=== PATIENT | male | born 1960 | race Caucasian/White ===

== ENCOUNTER → 2019-04-18 09:30 | Outpatient (BNVA) | payer MEDICAID, SELFPAY | PROVIDERS: Family Provider Nurse Practitioner Family; PCP Nurse Practitioner Family; Visit Provider Registered Nurse | DX: T81.41XA Infection following a procedure, superficial incisional surgical site, initial encounter (principal); I82.409 Acute embolism and thrombosis of unspecified deep veins of unspecified lower extremity; I82.403 Acute embolism and thrombosis of unspecified deep veins of lower extremity, bilateral | CPT/HCPCS: 85025 ==

== ENCOUNTER → 2019-09-24 16:12 | Outpatient (BNVA) | payer MEDICAID, SELFPAY | PROVIDERS: Family Provider Nurse Practitioner Family; PCP Nurse Practitioner Family; Visit Provider Registered Nurse | DX: E78.5 Hyperlipidemia, unspecified (principal); I10 Essential (primary) hypertension; F51.01 Primary insomnia; F10.982 Alcohol use, unspecified with alcohol-induced sleep disorder; I48.91 Unspecified atrial fibrillation; G60.9 Hereditary and idiopathic neuropathy, unspecified | CPT/HCPCS: 80053; 80061 ==

== ENCOUNTER → 2020-04-16 11:37 | Outpatient (BNVA) | payer MEDICAID, SELFPAY | PROVIDERS: Family Provider Nurse Practitioner Family; PCP Nurse Practitioner Family; Visit Provider Registered Nurse | DX: I10 Essential (primary) hypertension (principal); G60.9 Hereditary and idiopathic neuropathy, unspecified; N52.9 Male erectile dysfunction, unspecified | CPT/HCPCS: 80053; 80061; 85025 ==

== ENCOUNTER → 2020-12-24 00:01 | Outpatient (BNVA) | payer MEDICAID, SELFPAY | PROVIDERS: Family Provider Nurse Practitioner Family; PCP Registered Nurse; Visit Provider Registered Nurse | DX: G60.9 Hereditary and idiopathic neuropathy, unspecified (principal); J44.9 Chronic obstructive pulmonary disease, unspecified; F51.01 Primary insomnia; I10 Essential (primary) hypertension; F10.982 Alcohol use, unspecified with alcohol-induced sleep disorder | CPT/HCPCS: 80053 ==

== ENCOUNTER → 2021-05-28 09:37 | Outpatient (BNVA) | payer MEDICAID, SELFPAY | PROVIDERS: Family Provider Nurse Practitioner Family; PCP Registered Nurse; Visit Provider Internal Medicine Cardiovascular Disease | DX: I73.9 Peripheral vascular disease, unspecified (principal); Z72.0 Tobacco use; I48.91 Unspecified atrial fibrillation; I10 Essential (primary) hypertension | CPT/HCPCS: 99214; 99215 ==

== ENCOUNTER → 2021-10-06 08:36 | Outpatient (BNVA) | payer MEDICAID, SELFPAY | PROVIDERS: Family Provider Nurse Practitioner Family; PCP Registered Nurse; Visit Provider Registered Nurse | DX: I10 Essential (primary) hypertension (principal); J44.9 Chronic obstructive pulmonary disease, unspecified; E78.5 Hyperlipidemia, unspecified; N52.9 Male erectile dysfunction, unspecified; F51.01 Primary insomnia; F10.982 Alcohol use, unspecified with alcohol-induced sleep disorder; J30.2 Other seasonal allergic rhinitis | CPT/HCPCS: 80053; 80061; 85025 ==

== ENCOUNTER → 2022-07-21 10:25 | Outpatient (BNVA) | payer MEDICAID, SELFPAY | PROVIDERS: Family Provider Nurse Practitioner Family; PCP Registered Nurse; Visit Provider Specialist | DX: I48.0 Paroxysmal atrial fibrillation (principal); Z72.0 Tobacco use; I10 Essential (primary) hypertension; N52.9 Male erectile dysfunction, unspecified; I73.9 Peripheral vascular disease, unspecified; E78.5 Hyperlipidemia, unspecified; Z91.148 Patient's other noncompliance with medication regimen for other reason | CPT/HCPCS: 93246; 99214 ==

== ENCOUNTER → 2023-02-10 10:16 | Outpatient (BNVA) | payer MEDICAID, SELFPAY | PROVIDERS: Family Provider Nurse Practitioner Family; PCP Registered Nurse; Visit Provider Internal Medicine Cardiovascular Disease | DX: R06.02 Shortness of breath (principal); I48.0 Paroxysmal atrial fibrillation; I10 Essential (primary) hypertension; Z72.0 Tobacco use; R53.83 Other fatigue; I73.9 Peripheral vascular disease, unspecified; E78.5 Hyperlipidemia, unspecified; Z79.01 Long term (current) use of anticoagulants | CPT/HCPCS: 99214 ==

== ENCOUNTER 2023-06-10 08:32 | Outpatient (CLI) | payer MEDICAID, SELFPAY ==
--- NOTE | 2023-06-10 09:45 | USCV_ITS ---
Hi Martin Age: 62 Gender: M : 1960 Exam Date: 06/10/2023 08:39 Ordering Phys: Radha James MD ([email or web address]) Technologist: Exam [place] [facility] [place]: RIGHT LEFT Brachial 159.00 mmHg Brachial 150.00 mmHg Pressure (mmHg) Waveform Pressure (mmHg) Waveform 116.00 EMR ANALYST 136.00 129.00 DPA 144.00 0.81 Ankle/Brachial Index 0.91 FINDINGS Resting MARIAN 0.81 on the right side and 0.9 on 0.91 on the left side Post exercise MARIAN of 0.44 on the right and 0.87 on the left CONCLUSIONS 1. Abnormal post exercise MARIAN on the right side suggesting severe peripheral artery disease 2. Slightly diminished postexercise MARIAN on the left side suggesting mild peripheral arterial disease Dr Robin Diallo MD [facility] (Electronically Signed) Final Date: 10 June 2023 18:53 S
== END 2023-06-10 08:33 | disposition home or self-care (01) ==
LOC: RAD 08:32
PROVIDERS: PCP Registered Nurse; Visit Provider Internal Medicine Cardiovascular Disease
DX: I73.9 Peripheral vascular disease, unspecified (principal); R93.6 Abnormal findings on diagnostic imaging of limbs
CPT/HCPCS: 93922

== ENCOUNTER → 2023-12-16 07:23 | Outpatient (BNVA) | payer MEDICAID, SELFPAY | PROVIDERS: PCP Registered Nurse; Visit Provider Nurse Practitioner Family | DX: I48.0 Paroxysmal atrial fibrillation (principal); I10 Essential (primary) hypertension; F17.210 Nicotine dependence, cigarettes, uncomplicated | CPT/HCPCS: 99214 ==

== ENCOUNTER → 2024-04-10 09:17 | Outpatient (BNVA) | payer MEDICAID, SELFPAY | PROVIDERS: PCP Registered Nurse; Visit Provider Registered Nurse | DX: I10 Essential (primary) hypertension (principal) | CPT/HCPCS: 80053; 80061; 85025 ==

== ENCOUNTER 2024-05-06 14:29 | Emergency (ER) | payer MEDICAID, SELFPAY ==
[2024-05-06] VITALS (13 sets, daily range): BP systolic 148–203; BP diastolic 92–155; PULSE 74–108; RESP 17–30; TEMP 36.8; O2SAT 94–99; BMI 32.6
--- NOTE | 2024-05-06 15:10 | CTR_ITS ---
PROCEDURE INFORMATION: Exam: CT Head Without Contrast Exam date and time: 05/06/2024 3:16 PM Age: 63 years old Clinical indication: Stroke-like symptoms; Lt lower extremity weakness; Additional info: Sroke symptoms TECHNIQUE: Imaging protocol: Computed tomography of the head without contrast. Radiation optimization: All CT scans at this facility use at least one of these dose optimization techniques: automated exposure control; mA and/or kV adjustment per patient size (includes targeted exams where dose is matched to clinical indication); or iterative reconstruction. Other technique: STROKE PROTOCOL was implemented. COMPARISON: No relevant prior studies available. RADIATION DOSE METRICS: Total DLP (mGy-cm): 1139.49 FINDINGS: Brain: Mild nonspecific white matter low attenuation which may be related to microvascular ischemic changes. No acute confluent lobar ischemic infarct. No acute intracranial hemorrhage. Cerebral ventricles: The ventricles and sulci are normal in size and shape for the patient's stated age. Paranasal sinuses: No fluid levels. Mastoid air cells: Visualized mastoid air cells are well aerated. Bones: No acute calvarial fracture. Soft tissues: Visualized soft tissues are unremarkable. CT/CT head thrombolytic 89775 IMPRESSION: No acute intracranial abnormality. If symptoms persist, consider further evaluation with MRI, if there are no contraindications to obtaining a MRI scan. ASSESSMENT: ASPECTS ([place] Stroke Program Early CT Score) is 10.
--- NOTE | 2024-05-06 15:11 | ECG_ITS ---
[facility] Pat Name: Hi Martin Department: Room: Gender: Male Fixed Capital Clerk: : 1960 Requested By: Daryl Wyatt Order Number: [id number] Reading MD: LAVONNE FERNANDEZ Measurements Intervals [place] Rate: 88 P: 0 TN: 0 QRS: -30 QRSD: 99 T: 92 QT: 362 QTc: 439 Interpretive Statements ATRIAL FIBRILLATION BORDERLINE LEFT AXIS DEVIATION [QRS AXIS < -20] NONSPECIFIC ST & T-WAVE ABNORMALITY INTERPRETATION BASED ON A DEFAULT AGE OF 40 YEARS Compared to ECG 07/08/2016 13:58:59 T-wave abnormality now present ST (T wave) deviation no longer present Electronically Signed On 05-06-2024 20:46:35 ARMHOLE SEWER by LAVONNE FERNANDEZ [id number]
--- NOTE | 2024-05-06 15:27 | PC.NURSE ---
PATIENT NEUROCHECKS AND SHORT STROKE SCALE COMPLETED AT TIME OF PATIENT ARRIVAL BY EMS. PATIENT NEUROCHECKS AND STROKE SCALE NEGATIVE FOR FINDINGS. PATIENT PLACED IN WR.
[2024-05-06 16:30] LABS: Basophils # 0.1 10^3/uL (0.0-0.1); Basophils % 0.7 %; Eosinophils # 0.5 10^3/uL (0.0-0.8); Eosinophils % 4.3 %; Hematocrit 43.7 % (37-53); Lymphocytes # 1.5 10^3/uL (0.8-4.8); Lymphocytes % 12.9 %; Mean Corpuscular HGB Conc 33.9 g/dL (30-55); Mean Corpuscular Hemoglobin 32.6 pg (27-33); Mean Corpuscular Volume 96.3 fl (82-101); Mean Platelet Volume 10.2 fL (7.4-10.4); Monocytes # 0.9 10^3/uL (0.2-0.9); Monocytes % 8.1 %; Neutrophils # 8.48 10^3/uL (1.8-7.7); Neutrophils % 73.7 %; Nucleated Red Blood Cells % 0 %; Platelet Count 174 10^3/cmm (157-399); Red Blood Count 4.54 10^6/uL (3.85-5.65); Red Cell Distribution Width 13.9 % (12.1-15.1); White Blood Count 11.52 10^3/uL (3.29-11.43)
[2024-05-06 16:41] LABS: Glucose Point of Care 101 mg/dL (70-110)
--- NOTE | 2024-05-06 16:41 | W.ED.NEUROSD ---
HPI - Neuro Symptoms/Deficit General: Chief Complaint: Neuro Symptoms/Deficit Stated Complaint: STROKE LIKE SYMPTOMS Time Seen by Provider: 05/06/24 16:12 Source: patient and family Mode of arrival: EMS Limitations: no limitations History of Present Illness: On or about 12:00 today the patient states that he was engaging in his normal activities of daily living when he felt like his left leg was not feeling normal felt heavy and as if he cannot could not move it normally. He had no other symptoms to include other focal weakness, difficulty with speech, headache, other changes from his usual constitutional state. He notified his ex- who then called EMS. Upon arrival EMS noted he was hypertensive at that time and transported him to the emergency department. While in route with EMS his symptoms resolved and he was back at baseline. He has never had an occurrence like this before. He does have a history of chronic atrial fibs and takes diltiazem for rate control as well as Eliquis for stroke risk reduction. He denies any other concomitant chest pain shortness of breath fevers chills other symptoms. Quality: weak On Anticoagulants: Yes Associated symptoms: Reports no associated symptoms Related Data Home Medications ?Medication ?Instructions ?Recorded ?Confirmed apixaban 5 mg tablet (Eliquis) 5 mg PO BID 05/06/24 05/06/24 diltiazem HCl 120 mg 120 mg PO DAILY 05/06/24 05/06/24 capsule,extended release 24 hr fluticasone 250 mcg-salmeterol 50 1 inh inhalation DAILY 05/06/24 05/06/24 mcg/dose blistr powdr for inhalation (Advair Diskus) furosemide 20 mg tablet 20 mg PO DAILY 05/06/24 05/06/24 Previous Rx's ?Medication ?Instructions ?Recorded albuterol sulfate 90 mcg/actuation 1 inh inhalation QID PRN shortness 03/19/24 aerosol inhaler of breath or wheezing 30 days #8.5 grams atorvastatin 80 mg tablet 80 mg PO QDAY #90 tabs 03/19/24 clopidogrel 75 mg tablet 75 mg PO DAILY #90 tabs 03/19/24 potassium chloride 10 mEq 10 meq PO DAILY #90 caps 03/19/24 capsule,extended release sildenafil 100 mg tablet See Rx Instructions .Route 04/10/24 .COMPLEX #10 tabs trazodone 150 mg tablet 150 mg PO .at bedtime 90 days #90 04/10/24 tabs amlodipine 5 mg tablet (Norvasc) 5 mg PO DAILY #30 tabs 05/06/24 Allergies Allergy/AdvReac Type Severity Reaction Status Date / Time duloxetine (From Cymbalta) Allergy Unknown Verified 04/10/24 08:43 Penicillins Allergy Unknown Verified 04/10/24 08:43 PFS ED PFSH: Medical History (Updated 05/06/24 @ 19:46 by Nik Willis DO) Obesity Tobacco abuse Atrial fibrillation Bipolar affective disorder Anxiety Depression Erectile dysfunction Idiopathic neuropathy Insomnia disorder Alcohol abuse History of DVT (deep vein thrombosis) Essential hypertension Surgical History Hx of cholecystectomy History of embolectomy Family History Other Heart disease Social History Smoking and tobacco/nicotine status: current every day tobacco/nicotine user cigarettes Alcohol intake: current Substance/Drug Use: never Adopted: No Caregiver/support person: No Lives independently: No Household members: spouse Marital status: Current occupational status: disabled Sexually active: Yes Do you think of yourself as: Straight/Heterosexual Current gender identity: Male NIH stroke score NIHSS: Level Of Consciousness - 1a: 0 Level Of Consciousness Questions - 1b: Both Correct Level Of Consciousness Commands - 1c: Both Correct Best Gaze - 2: Normal Visual [place] - 3: No Visual Loss Facial Palsy - 4: Normal Motor Arm Right - 5: No Drift Motor Arm Left - 5: No Drift Motor Leg Right - 6: No Drift Motor Leg Left - 6: No Drift Limb Ataxia - 7: Absent Sensory - 8: Normal Best Language - 9: No Aphasia Dysarthia - 10: Normal Extinction And Inattention - 11: 0 Score: Total Score: 0 Physical Exam Narrative: EXAM NARRATIVE: He is alert in no acute distress interactive and appropriate and comfortable. Const: COMMON NORMALS: no acute distress and patient oriented x3 GENERAL APPEARANCE: cooperative and comfortable NUTRITIONAL APPEARANCE: overweight HENMT: COMMON NORMALS: normocephalic, Normal nasal mucous membranes and turbinates present and moist oral mucous membranes HEAD & SCALP: normocephalic FACE & SINUS: face symmetric NOSE: Normal nasal mucous membranes and turbinates present Eye: COMMON NORMALS: Equal, round and reactive pupils present, EOMs intact bilaterally and conjunctivae normal CONJUNCTIVA: Yes conjunctivae normal PUPIL: Yes Equal, round and reactive pupils present Neck/C-Spine: COMMON NORMALS: full ROM, no JVD, Thyroid normal and No carotid bruits THYROID: Thyroid normal Chest: COMMONS NORMALS: normal inspection of the chest Resp: COMMON NORMALS: normal respiratory effort, No retractions, No use of accessory muscles and clear to auscultation bilaterally AUSCULTATION: clear to auscultation bilaterally Cardio: COMMON NORMALS: no JVD, No murmurs present (Cardio) and Peripheral pulses 2+ throughout RHYTHM: abnormal rhythm irregularly irregular PERIPHERAL PULSES: Peripheral pulses 2+ throughout GI: COMMON NORMALS: Normal to inspection, nondistended, normoactive bowel sounds present, Soft to palpation and non-tender PALPATION: Yes Soft to palpation : COMMON NORMALS: Yes no CVA tenderness BLADDER/KIDNEY EXAM: Yes no CVA tenderness Back/Pelvis: COMMON NORMALS: no CVA tenderness, thoracic and lumbar spine normal to inspection, no thoracic nor lumbar tenderness and thoraco-lumbar ROM normal Extremity: COMMON NORMALS: normal to inspection, full ROM, no calf tenderness and no pedal edema Neuro: COMMON NORMALS: patient oriented x3, moves all extremities, no focal motor deficits and no sensory deficits noted CRANIAL NERVES: Yes CN normal except as noted COORDINATION/BALANCE: hboafm-mz-aufi test normal and uvth-he-yvek test normal SPEECH: speech normal MOTOR EXAM: 5/5 motor strength present throughout COORDINATION: [id number]-dz-skfm test normal and bmvc-sc-phmm test normal Psych: COMMON NORMALS: mental status grossly normal Skin: COMMON NORMALS: no rashes or lesions noted GENERAL SKIN EXAM: no rashes or lesions noted Course Reevaluation(s): Reevaluation #1: The patient's blood pressure tended to be labile while in the emergency department. Initially we are going to give him labetalol and then his pressures improved spontaneously however then again creep back up. We went ahead and gave him oral amlodipine and his systolic pressures reduce in the 160 range. Patient was adamant that he wanted to go home. We discussed the fact is that his tobacco use is a contributing factor to hypertension and stroke risk and he needs to stop that immediately. We will continue him on a 5 mg amlodipine dose help control hypertension as his diltiazem is put on predominantly for rate control and is not a very good hip antihypertensive. He is currently on Eliquis for stroke risk reduction. The patient desires to be discharged and does not desire to stay in observation status or other prolonged treatment status at this time. We discussed the importance of follow-up. He voiced understanding and also voiced understanding of the risks and benefits of his lifestyle and the need to continue to reduce his tobacco and also return to the emerged part for any return of any concerning symptoms. Time: 19:51 Vital Signs: Vital signs: Vital Signs Temperature 98.2 F 05/06/24 15:06 Pulse Rate 77 05/06/24 17:30 Respiratory Rate 22 H 05/06/24 17:30 Blood Pressure 148/106 05/06/24 17:30 Pulse Oximetry 94 05/06/24 17:30 Oxygen Delivery Me thod Room Air 05/06/24 16:21 MDM - Neuro Symptoms/Deficit Medical Decision Making This patient presented to the Emergency Department as noted in the HPI. The question whether he had some transient left leg weakness however it resolved at arrival of EMS. He was noted to be hypertensive and route which also improved some. At his emergency department arrival in a very busy emergency department he ultimately had a thrombolytic CT performed which was reassuring without any evidence of acute hemorrhage midline shift or other acute changes. His clinical exam was reassuring with an NIH of 0 and no other findings to suggest an acute ischemic event. Of note was that his blood pressure was somewhat labile in the emergency department and eventually was treated with oral amlodipine with reasonable response. He continues to remain asymptomatic with regards to any other neurologic symptoms. He does have a history of chronic atrial fibrillation but and is on Eliquis for stroke risk reduction but continues to have issues with his tobacco use disorder. No other findings to suggest an acute emergency condition at this time. He was observed in the emergency room for several hours with improvement of his blood pressure after oral treatment. The patient voiced under standing of his condition and the need to discontinue his smoking habit. He also understood the importance of blood pressure control and was prescribed amlodipine at discharge. He is stable to be discharged for home. Lab Data I reviewed the patient's lab results. 05/06/24 16:19 05/06/24 16:[address] 05/06/24 15:10 IMPRESSION: No acute intracranial abnormality. If symptoms persist, consider further evaluation with MRI, if there are no contraindications to obtaining a MRI scan. ASSESSMENT: ASPECTS ([place] Stroke Program Early CT Score) is 10. ADDENDUM: 05/06/24 1536 ADDENDUM: THIS REPORT CONTAINS FINDINGS THAT MAY BE CRITICAL TO PATIENT CARE. The findings were verbally communicated via telephone conference with Dr. Willis at 3:34 PM VEHICLE INSPECTOR on 05/06/2024. The findings were acknowledged and understood. Laboratory Results WBC 11.52 10^3/uL (3.29-11.43) H 05/06/24 16:19 RBC 4.54 10^6/uL (3.85-5.65) 05/06/24 16:19 Hgb 14.80 g/dL (11.27-16.99) 05/06/24 16:19 Hct 43.7 % (37-53) 05/06/24 16:19 MCV 96.3 fl (82-101) 05/06/24 16:19 MCH 32.6 pg (27-33) 05/06/24 16:19 MCHC 33.9 g/dL (30-55) 05/06/24 16:19 RDW 13.9 % (12.1-15.1) 05/06/24 16:19 Plt Count 174 10^3/cmm (157-399) 05/06/24 16:19 MPV 10.2 fL (7.4-10.4) 05/06/24 16:19 Neut % (Auto) 73.7 % 05/06/24 16:19 Lymph % (Auto) 12.9 % 05/06/24 16:19 Alfalfa % (Auto) 8.1 % 05/06/24 16:19 Eos % (Auto) 4.3 % 05/06/24 16:19 Baso % (Auto) 0.7 % 05/06/24 16:19 Neut # (Auto) 8.48 10^3/uL (1.8-7.7) H 05/06/24 16:19 Lymph # (Auto) 1.5 10^3/uL (0.8-4.8) 05/06/24 16:19 Alfalfa # (Auto) 0.9 10^3/uL (0.2-0.9) 05/06/24 16:19 Eos # (Auto) 0.5 10^3/uL (0.0-0.8) 05/06/24 16:19 Baso # (Auto) 0.1 10^3/uL (0.0-0.1) 05/06/24 16:19 Nucleated RBC % (auto) 0 % 05/06/24 16:19 Nucleated RBCs # 0.0 /100WBC 05/06/24 16:19 PT 13.60 SECONDS (12.1-14.9) 05/06/24 16:19 INR 0.97 (0.8-1.2) 05/06/24 16:19 APTT 28.6 SECONDS (23.9-36.7) 05/06/24 16:19 Sodium 138 mmol/L (136-145) 05/06/24 16:19 Potassium 4.2 mmol/L (3.5-5.1) 05/06/24 16:19 Chloride 104 mmol/L (98-107) 05/06/24 16:19 Carbon Dioxide 21 mmol/L (22-29) L 05/06/24 16:19 Anion Gap 17.2 (5-19) 05/06/24 16:19 BUN 16 mg/dL (8-23) 05/06/24 16:19 Creatinine 1.3 mg/dL (0.7-1.2) H 05/06/24 16:19 GFR Calculation 55.4 mL/min (90-130) L 05/06/24 16:19 Glucose 101 mg/dL (65-115) 05/06/24 16:19 POC Glucose 101 mg/dL (70-110) 05/06/24 16:37 Calculated Osmolality 287 mOsm/kg (285-295) 05/06/24 16:19 Calcium 8.7 mg/dL (8.5-10.5) 05/06/24 16:19 Total Bilirubin 0.4 mg/dL (0.15-1.2) 05/06/24 16:19 AST 23 U/L (0-40) 05/06/24 16:19 ALT 17 U/L (0-41) 05/06/24 16:19 Alkaline Phosphatase 101 U/L (40-130) 05/06/24 16:19 Total Protein 7.1 g/dL (6.6-8.7) 05/06/24 16:19 Albumin 4.0 g/dL (3.5-5.2) 05/06/24 16:19 Globulin 3.1 g/dL (1.3-4.6) 05/06/24 16:19 Urine Color Yellow (Yellow) 05/06/24 17:31 Urine Appearance Clear (CLEAR) 05/06/24 17: Urine pH 6.5 (5-7) 05/06/24 17: Ur Specific [place] 1.013 (1.005-1.030) 05/06/24 17: Urine Protein Negative (Negative) 05/06/24 17: Urine Glucose (UA) Negative (Normal) 05/06/24 17: Urine Ketones Negative (Negative) 05/06/24 17: Urine Blood 1+ (Negative) A 05/06/24 17: Urine Nitrate Negative (Negative) 05/06/24 17: Urine Bilirubin Negative (Negative) 05/06/24 17: Urine Urobilinogen 0.2 mg/dL (Negative) 05/06/24 17:31 Ur Leukocyte Esterase Negative (Negative) 05/06/24 17: Urine RBC 11-20 /hpf (0-2) H 05/06/24 17:31 Urine WBC 0-5 /hpf (0-5) 05/06/24 17:31 Ur Squamous Epith Cells 0-5 /hpf (0-5) 05/06/24 17: Amorphous Sediment Not Reportable 05/06/24 17: Urine Bacteria None seen /hpf (NONE) 05/06/24 17:31 Hyaline Casts 0-4 /lpf H 05/06/24 17:31 Urine Opiates Screen Negative ng/mL (Negative) 05/06/24 17:31 Ur Barbiturates Screen Negative ng/mL (Negative) 05/06/24 17:31 Ur Phencyclidine Scrn Negative ng/mL (Negative) 05/06/24 17: Ur Amphetamines Screen Negative ng/mL (Negative) 05/06/24 17:31 U Benzodiazepines Scrn Positive ng/mL (Negative) H 05/06/24 17:31 Urine Cocaine Screen Negative ng/mL (Negative) 05/06/24 17:31 U Marijuana (THC) Screen Positive ng/mL (Negative) H 05/06/24 17:31 All radiology interpretation(s) finalized by discharge Discharge Plan Discharge Patient Disposition: Home Clinical Impression: Labile hypertension, Tobacco use Atrial fibrillation Qualifiers: Atrial fibrillation type: paroxysmal Qualified Code(s): I48.0 - Paroxysmal atrial fibrillation Condition: Stable Prescriptions: New amlodipine [Norvasc] 5 mg tablet 5 mg PO DAILY Qty: 30 2RF No Action albuterol sulfate 90 mcg/actuation HFA aerosol inhaler 1 inh inhalation QID PRN (Reason: shortness of breath or wheezing) 30 Days Qty: 8.5 0RF trazodone 150 mg tablet 150 mg PO .at bedtime 90 Days Qty: 90 3RF sildenafil 100 mg tablet See Rx Instructions .ROUTE .COMPLEX Qty: 10 3RF Dose Instruction: TAKE 1 TABLET BY MOUTH DAILY NEEDED FOR SEXUAL ACTIVITY ADMINISTER 30 MINUTES TO 4 HOURS BEFORE ACTIVITY Rx Instructions: TAKE 1 TABLET BY MOUTH DAILY NEEDED FOR SEXUAL ACTIVITY ADMINISTER 30 MINUTES TO 4 HOURS BEFORE ACTIVITY potassium chloride 10 mEq capsule, extended release 10 meq PO DAILY Qty: 90 3RF clopidogrel 75 mg tablet 75 mg PO DAILY Qty: 90 3RF atorvastatin 80 mg tablet 80 mg PO QDAY Qty: 90 3RF fluticasone propion-salmeterol [Advair Diskus] 250-50 mcg/dose blister with device 1 inh inhalation DAILY Rx Instructions: INHALE 1 PUFF BY MOUTH TWICE DAILY diltiazem HCl 120 mg capsule,extended release 24hr 120 mg PO DAILY Rx Instructions: TAKE 1 CAPSULE BY MOUTH DAILY furosemide 20 mg tablet 20 mg PO DAILY Rx Instructions: TAKE 1 TABLET BY MOUTH DAILY Eliquis 5 mg tablet 5 mg PO BID Rx Instructions: TAKE 1 TABLET BY MOUTH TWICE DAILY Discharge Orders: Discharge ED (Routine); Ordered 05/06/24 Ordered By: Nik Willis Referrals: Evans Cordova, FARM AGENT [Primary Care Provider] - Discharge Diet: Low Salt Discharge Activity: Increase activity as tolerated Patient Instructions: Opioid Safety, Pain Management Activity Restrictions/Additional Instructions: We have provided an additional prescription medication to help control your blood pressure. You should take your blood pressure at home twice daily after you have been sitting for approximately 10 minutes. You should record those values for your doctor to review to make medication adjustment. You should absolutely discontinue your tobacco use as it is a risk factor for hypertension and stroke. If you develop any new or worsening symptoms you are welcome to return to the emergency department at any time. Print Language: Azeri Coding Level of Care Code ED Enterprise Services Manager for Mo Diaz
[2024-05-06 16:43] LABS: INR 0.97 (0.8-1.2); Partial Thromboplastin Time 28.6 SECONDS (23.9-36.7)
[2024-05-06 16:48] LABS: Alanine Aminotransferase 17 U/L (0-41); Alkaline Phosphatase 101 U/L (40-130); Anion Gap 17.2 (5-19); Aspartate Amino Transferase 23 U/L (0-40); Blood Urea Nitrogen 16 mg/dL (8-23); Calcium 8.7 mg/dL (8.5-10.5); Carbon Dioxide 21 mmol/L (22-29); Chloride 104 mmol/L (98-107); Creatinine Clr Calc Pharmacy 64.1417; Globulin 3.1 g/dL (1.3-4.6); Glomerular Filtration Rate 55.4 mL/min (90-130); Glucose 101 mg/dL (65-115); Osmolality Calculated 287 mOsm/kg (285-295); Potassium 4.2 mmol/L (3.5-5.1); Sodium 138 mmol/L (136-145); Total Bilirubin 0.4 mg/dL (0.15-1.2); Total Protein 7.1 g/dL (6.6-8.7)
[2024-05-06 17:40] LABS: Bilirubin Urine Negative (Negative); Blood Urine 1+ (Negative); Glucose Urine UA Negative (Normal); Ketones Urine Negative (Negative); Leukocyte Esterase Urine Negative (Negative); Nitrate Urine Negative (Negative); Protein Urine Negative (Negative); Specific Gravity, Urine 1.013 (1.005-1.030); Urine Appearance Clear (CLEAR); Urine Color Yellow (Yellow); Urobilinogen Urine 0.2 mg/dL (Negative); pH Urine 6.5 (5-7)
[2024-05-06 17:42] LABS: Add Urine Microscopic? YES; Bacteria Urine None Seen /hpf; Hyaline Casts Urine 0-4 /lpf; Squamous Epithelial Cell Urine 0-5 /hpf (0-5); WBC Urine 0-5 /hpf (0-5)
[2024-05-06 17:47] LABS: Amphetamines Screen Urine Negative (Negative); Barbiturates Screen Urine Negative (Negative); Benzodiazepines Screen Urine Positive (Negative); Cocaine Screen Urine Negative (Negative); Opiate Screen Urine Negative (Negative); PCP Screen Urine Negative (Negative); THC Screen Urine Positive (Negative)
[2024-05-06] MEDS: amlodipine 5 mg Tablet PO (19:06)
== END 2024-05-06 20:06 | disposition home or self-care (01) ==
PROVIDERS: Family Medicine; Emergency Provider Emergency Medicine; PCP Registered Nurse
DX: I10 Essential (primary) hypertension (principal); I48.0 Paroxysmal atrial fibrillation; Z79.02 Long term (current) use of antithrombotics/antiplatelets; Z79.01 Long term (current) use of anticoagulants; F17.210 Nicotine dependence, cigarettes, uncomplicated
CPT/HCPCS: 36416; 70450; 80053; 80306; 81001; 82962; 85025; 85610; 85730; 93005; 99284

== ENCOUNTER → 2024-11-01 10:15 | Outpatient (BNVA) | payer MEDICAID, SELFPAY | PROVIDERS: PCP Registered Nurse; Visit Provider Podiatrist Foot & Ankle Surgery | DX: M79.671 Pain in right foot (principal); M79.672 Pain in left foot; M25.571 Pain in right ankle and joints of right foot; S82.401A Unspecified fracture of shaft of right fibula, initial encounter for closed fracture; X58.XXXA Exposure to other specified factors, initial encounter; M77.42 Metatarsalgia, left foot; L90.9 Atrophic disorder of skin, unspecified; M62.838 Other muscle spasm | CPT/HCPCS: 73610; 73630; 99204 ==

== ENCOUNTER → 2024-11-29 09:48 | Outpatient (BNVA) | payer MEDICAID, SELFPAY | PROVIDERS: PCP Registered Nurse; Visit Provider Registered Nurse | DX: I10 Essential (primary) hypertension (principal) | CPT/HCPCS: 80053; 85025; 85651; 86140 ==